=== PATIENT | female | born 1985 | race American Indian/Alaskan Native ===

== ENCOUNTER 2018-05-11 22:58 | Emergency (ER) | payer SELFPAY ==
[2018-05-12] MEDS ORDERED: NACL 0.9% 500 ML 500 ML IV ONE (00:38)
[2018-05-12] MEDS ORDERED: TYLENOL PO STA (00:38)
[2018-05-12 00:55] LABS: Basophils % (Auto) 0.3 % (0.0-1.8); Hematocrit 34.6 % (30.3-42.9); Hemoglobin 11.2 gm/dl (10.1-14.3); Lymphocytes # (Auto) 1.3 K/mm3 (1.2-5.4); Lymphocytes % (Auto) 7.8 % (13.4-35.0); Mean Corpuscular HGB Conc 32 % (30-34); Monocytes # (Auto) 0.8 K/mm3 (0.0-0.8); Monocytes % (Auto) 4.7 % (0.0-7.3); Platelet Count 254 K/mm3 (140-440); Red Blood Count 5.05 M/mm3 (3.65-5.03); Red Cell Distribution Width 19.4 % (13.2-15.2)
[2018-05-12 01:10] LABS: Alanine Aminotransferase 7 units/L (7-56); Albumin 3.9 g/dL (3.9-5); BUN/Creatinine Ratio 13; Blood Urea Nitrogen 10 mg/dL (7-17); Calcium 8.7 mg/dL (8.4-10.2); Hemolysis Index 1
[2018-05-12 01:29] LABS: Mean Corpuscular Hemoglobin 22 pg (28-32); Mean Corpuscular Volume 68 fl (79-97)
--- NOTE | 2018-05-12 01:36 | Emergency Department Report ---
ED General Adult HPI - General Chief complaint: Fever Stated complaint: FEVER,VOMITING,CHEST PAIN Time Seen by Provider: 05/12/18 01:25 Source: patient Mode of arrival: Ambulatory Limitations: No Limitations - History of Present Illness Initial comments: Patient is 32 years old female with no significant past medical history. Patient presented to the ER complaining of fever and generalized body pain. Patient is also noticing a redness in her right leg that is started this evening. She stated that she had history of cellulitis in this area before. Severity scale (0 -10): 0 - Related Data Allergies Allergy/AdvReac Type Severity Reaction Status Date / Time clindamycin Allergy Hives Verified 05/12/18 00:38 ED Review of Systems ROS: Stated complaint: FEVER,VOMITING,CHEST PAIN Other details as noted in HPI Comment: All other systems reviewed and negative Constitutional: chills, fever Respiratory: denies: cough, orthopnea, shortness of breath, SOB with exertion, SOB at rest, wheezing Cardiovascular: chest pain. denies: palpitations, dyspnea on exertion Gastrointestinal: abdominal pain, nausea, vomiting. denies: diarrhea, constipation, hematemesis, melena, hematochezia Genitourinary: abnormal menses. denies: urgency, discharge Neurological: denies: headache, weakness, numbness, paresthesias, confusion ED Past Medical Hx - Past Medical History Hx Asthma: Yes Additional medical history: Bronchitis, Morbid Obesity - Social History Smoking Status: Never Smoker Substance Use Type: None ED Physical Exam - General Limitations: No Limitations General appearance: alert, in no apparent distress - Head Head exam: Present: atraumatic, normocephalic, normal inspection - Eye Eye exam: Present: normal appearance, PERRL - ENT ENT exam: Present: normal exam, normal orophraynx, mucous membranes moist - Respiratory Respiratory exam: Present: normal lung sounds bilaterally - Cardiovascular Cardiovascular Exam: Present: regular rate, normal rhythm, normal heart sounds - GI/Abdominal GI/Abdominal exam: Present: soft, normal bowel sounds. Absent: distended, tenderness, guarding, rebound, rigid, diminished bowel sounds, organomegaly, mass, bruit, pulsatile mass - Extremities Exam Extremities exam: Present: full ROM, normal capillary refill. Absent: pedal edema, calf tenderness - Back Exam Back exam: Present: normal inspection, full ROM. Absent: CVA tenderness (R), CVA tenderness (L), muscle spasm, paraspinal tenderness, vertebral tenderness, rash noted - Neurological Exam Neurological exam: Present: alert, oriented X3, CN II-XII intact, normal gait, reflexes normal - Skin Skin exam: Present: warm, dry, intact, other (right leg with a 55 cm area of redness and erythema and slightly tender which is consistent with cellulitis) ED Course Vital Signs 05/11/18 05/12/18 05/12/18 23:20 00:30 01:20 Temperature 102.5 F H 102.5 F H 99.8 F H Pulse Rate 125 H 118 H 112 H Respiratory 18 18 24 Rate Blood Pressure 179/102 179/102 Blood Pressure 128/91 [Right] O2 Sat by Pulse 98 98 99 Oximetry 05/12/18 05/12/18 03:09 03:46 Temperature 98.8 F Pulse Rate 104 H Respiratory Rate Blood Pressure 129/51 Blood Pressure [Right] O2 Sat by Pulse 94 Oximetry ED Medical Decision Making - Lab Data Result diagrams: 05/12/18 00:43 05/12/18 00:43 - Radiology Data Radiology results: report reviewed Referring Physician: RUBY PAULSON Patient Name: MED MAI Date of : 1985 Sex: Female Report Date: 2018-05-12 Report Status: [place] [address] Cat Scan Report Signed Patient: MED MAI MR#: [id number] : 1985 Acct:[id number] Age/Sex: 32 / F ADM Date: 05/11/18 Loc: ED Attending Dr: Ordering Physician: RUBY PAULSON Date of Service: 05/12/18 Procedure(s): CT abdomen pelvis w con Accession Number(s): [id number] cc: RUBY PAULSON FINAL REPORT EXAM: CT ABDOMEN PELVIS W CON HISTORY: abdominal pain TECHNIQUE: Routine axial imaging was obtained of the abdomen and pelvis following the intravenous injection of 100 cc of Omnipaque 350. Delayed imaging was obtained through the kidneys ureters and bladder. Sagittal and coronal reconstructions were reviewed. FINDINGS: The lung bases are clear. Pleural fluid is not seen. The liver, gallbladder, biliary tree, pancreas, spleen, and adrenal glands appear normal. The kidneys enhance normally. The abdominal aorta is normal in caliber. The vasculatures enhance normally. The bowel loops are normal in caliber and course. There is no evidence of free fluid or adenopathy. The appendix appears normal. In the pelvis the uterus and bladder appear normal. There are no adnexal masses. The skeletal structures appear well maintained. IMPRESSION: No acute process in the abdomen and pelvis. Transcribed By: RB Dictated By: ASHLEIGH HERZOG MD Electronically Authenticated By: ASHLEIGH HERZOG MD Signed Date/Time: 05/12/18346 DD/ 6 TD/TT: 05/12/18346 Critical care attestation.: If time is entered above; I have spent that time in minutes in the direct care of this critically ill patient, excluding procedure time. ED Disposition Clinical Impression: Abdominal pain, Fever, Cellulitis of leg, right Disposition: DC-01 TO HOME OR SELFCARE Is pt being admited?: No Condition: Stable Instructions: Abdominal Pain (ED), Cellulitis (ED)
[2018-05-12 01:40] LABS: INR 1.1 (0.87-1.13)
--- NOTE | 2018-05-12 01:56 | XRay Report ---
FINAL REPORT EXAM: XR CHEST 1V AP HISTORY: possible Sepsis TECHNIQUE: A portable upright view the chest was submitted. FINDINGS: The heart size and vascularity appear normal. The lungs are clear. Pleural fluid is not seen. The skeletal structures are well-maintained. IMPRESSION: No acute cardiopulmonary process.
[2018-05-12] MEDS ORDERED: ZOSYN/NS 4.5GM/100ML 4.5 GM/100 ML VIAL IV ONE (02:29)
[2018-05-12 02:30] LABS: Bilirubin,Urine NEG (Negative); Blood,Urine NEG (Negative); Color,Urine Yellow (Yellow); Protein,Urine <15 mg/dL mg/dL (Negative); Urobilinogen,Urine < 2.0 mg/dL (<2.0)
[2018-05-12 02:50] LABS: HCG Qualitative,Urine Negative (Negative)
[2018-05-12] MEDS ORDERED: ZOFRAN IV ONE (03:33)
[2018-05-12] MEDS ORDERED: MORPHINE IV ONE (03:33)
[2018-05-12 03:47] VITALS: BP 129/51
--- NOTE | 2018-05-12 03:49 | Cat Scan Report ---
FINAL REPORT EXAM: CT ABDOMEN PELVIS W CON HISTORY: abdominal pain TECHNIQUE: Routine axial imaging was obtained of the abdomen and pelvis following the intravenous injection of 100 cc of Omnipaque 350. Delayed imaging was obtained through the kidneys ureters and bladder. Sagittal and coronal reconstructions were reviewed. FINDINGS: The lung bases are clear. Pleural fluid is not seen. The liver, gallbladder, biliary tree, pancreas, spleen, and adrenal glands appear normal. The kidneys enhance normally. The abdominal aorta is normal in caliber. The vasculatures enhance normally. The bowel loops are normal in caliber and course. There is no evidence of free fluid or adenopathy. The appendix appears normal. In the pelvis the uterus and bladder appear normal. There are no adnexal masses. The skeletal structures appear well maintained. IMPRESSION: No acute process in the abdomen and pelvis.
== END 2018-05-12 05:20 | disposition home or self-care (01) ==
LOC: ED 22:58
DX: L03.115 Cellulitis of right lower limb (principal); R10.9 Unspecified abdominal pain; J45.909 Unspecified asthma, uncomplicated; E66.01 Morbid (severe) obesity due to excess calories; Z68.42 Body mass index [BMI] 45.0-49.9, adult; Z88.1 Allergy status to other antibiotic agents
CPT/HCPCS: 36415; 71045; 74177; 80053; 81001; 81025; 82140; 82805; 84703; 85025; 85610; 87040; 87086; 93005; 93010; 96361; 96365; 96375; 99285; J2270; J2405; J2543; J7040; Q9967

== ENCOUNTER 2018-09-02 00:41 | Emergency (ER) | payer SELFPAY ==
[2018-09-02 00:52] VITALS: BP 154/102
--- NOTE | 2018-09-02 02:05 | Emergency Department Report ---
- General Chief complaint: Fever Stated complaint: FEVER WITH CHILLS RT LEG PAIN Time Seen by Provider: 09/02/18 01:01 Source: patient Mode of arrival: Ambulatory Limitations: No Limitations - History of Present Illness Initial comments: This is 33-year-old female here report fever, chills, redness to right leg with swelling and warmth to touch. She reports that she does have any drainage from site. She says she has cellulitis to area where she had insect bite or spider bite intended 2011 and she has had repeat cellulitis about 4-5 times since then. Patient was here on 2017 and was treated for similar complaints with Bactrim. She said it got better but it just comes and goes. She reports she is having body aches which she was having before and similar to body ache with cellulitis breakout at 7 out of 10 and also right leg pain at cellulitic fight at 8 out of 10 pain's achy worsen movement better with rest. She denies any shortness of breath, cough, chest pain or congestion. Denies any history of blood clots and says she has had Doppler ultrasound in the past but she did not have one last time she was here. Patient has a history of asthma and bro nchitis. She says she comes to the hospital to get treated. Tetanus vaccine is up-to-date. complaint: rash Onset/Timin -: days(s) Tetanus Up to Date: yes Location: generalized (generalized body ache), RLE (right distal leg) Severity: severe Severity scale (0 -10): 8 Quality: aching Consistency: constant Improves with: none Worsens with: palpation, movement Context: other (patient recurrent cellulitis to the area since 2011 where she had a spider bite.) Associated symptoms: fever, chills, athralgias, myalgias Treatments Prior to Arrival: NSAID - Related Data Previous Rx's Medication Instructions Recorded Last Taken Type Sulfamethoxazole/Trimethoprim 1 each PO BID #20 tablet 05/12/18 Unknown Rx [Bactrim DS TAB] Acetaminophen/Codeine [Tylenol 1 tab PO Q6H PRN #14 tab 09/02/18 Unknown Rx /Codeine # 3 tab] Ibuprofen [Motrin] 800 mg PO Q8HR PRN #12 tablet 09/02/18 Unknown Rx Sulfamethoxazole/Trimethoprim 1 each PO BID 10 Days #20 tablet 09/02/18 Unknown Rx [Bactrim DS TAB] cephALEXin [Keflex] 500 mg PO Q8HR 10 Days #30 cap 09/02/18 Unknown Rx Allergies Allergy/AdvReac Type Severity Reaction Status Date / Time clindamycin Allergy Hives Verified 05/12/18 00:38 Abscess Boil HPI - HPI Chief Complaint: Fever Stated Complaint: FEVER WITH CHILLS RT LEG PAIN Time Seen by Provider: 09/02/18 01:01 Home Medications: Previous Rx's Medication Instructions Recorded Last Taken Type Sulfamethoxazole/Trimethoprim 1 each PO BID #20 tablet 05/12/18 Unknown Rx [Bactrim DS TAB] Acetaminophen/Codeine [Tylenol 1 tab PO Q6H PRN #14 tab 09/02/18 Unknown Rx /Codeine # 3 tab] Ibuprofen [Motrin] 800 mg PO Q8HR PRN #12 tablet 09/02/18 Unknown Rx Sulfamethoxazole/Trimethoprim 1 each PO BID 10 Days #20 tablet 09/02/18 Unknown Rx [Bactrim DS TAB] cephALEXin [Keflex] 500 mg PO Q8HR 10 Days #30 cap 09/02/18 Unknown Rx Allergies/Adverse Reactions: Allergies Allergy/AdvReac Type Severity Reaction Status Date / Time clindamycin Allergy Hives Verified 05/12/18 00:38 ED Review of Systems ROS: Stated complaint: FEVER WITH CHILLS RT LEG PAIN Other details as noted in HPI Constitutional: chills, fever Respiratory: denies: cough, shortness of breath, SOB with exertion, SOB at rest, stridor, wheezing Cardiovascular: denies: chest pain, palpitations, dyspnea on exertion, edema, syncope Gastrointestinal: denies: abdominal pain, nausea, vomiting, diarrhea, constipation Genitourinary: denies: dysuria, discharge Musculoskeletal: arthralgia, myalgia. denies: back pain, joint swelling Skin: rash, change in color Neurological: denies: headache, numbness, paresthesias, abnormal gait, vertigo ED Past Medical Hx - Past Medical History Previous Medical History?: Yes Hx Asthma: Yes Additional medical history: Bronchitis, Morbid Obesity. Current cellulitis to right lower extremity secondary to insect bite in 2012 - Surgical History Past Surgical History?: No - Family History Family history: hypertension - Social History Smoking Status: Never Smoker Substance Use Type: Alcohol - Medications Home Medications: Home Medications Medication Instructions Recorded Confirmed Last Taken Type Sulfamethoxazole/Trimethoprim 1 each PO BID #20 tablet 05/12/18 Unknown Rx [Bactrim DS TAB] Acetaminophen/Codeine [Tylenol 1 tab PO Q6H PRN #14 tab 09/02/18 Unknown Rx /Codeine # 3 tab] Ibuprofen [Motrin] 800 mg PO Q8HR PRN #12 tablet 09/02/18 Unknown Rx Sulfamethoxazole/Trimethoprim 1 each PO BID 10 Days #20 tablet 09/02/18 Unknown Rx [Bactrim DS TAB] cephALEXin [Keflex] 500 mg PO Q8HR 10 Days #30 cap 09/02/18 Unknown Rx ED Physical Exam - General Limitations: No Limitations General appearance: alert, in no apparent distress - Head Head exam: Present: atraumatic, normocephalic, normal inspection - Eye Eye exam: Present: normal appearance, PERRL, EOMI Pupils: Present: normal accommodation - ENT ENT exam: Present: normal exam, normal orophraynx, mucous membranes moist - Neck Neck exam: Present: full ROM, other (no C-spine tenderness). Absent: tenderness, lymphadenopathy - Respiratory Respiratory exam: Present: normal lung sounds bilaterally. Absent: respiratory distress, chest wall tenderness - Cardiovascular Cardiovascular Exam: Present: normal rhythm, tachycardia, normal heart sounds - GI/Abdominal GI/Abdominal exam: Present: soft, normal bowel sounds. Absent: distended, tenderness, guarding, rebound, rigid, organomegaly, mass, bruit, pulsatile mass - Extremities Exam Extremities exam: Present: normal inspection, full ROM, tenderness (right distal leg anteriorly), normal capillary refill, other (No cce. + 2 pulses in all extremities, no neurovascular compromise except for redness and swelling to right distal leg anteriorly. No drainage. Tender to palpate.). Absent: pedal edema, joint swelling, calf tenderness - Expanded Lower Extremity Exam Right Hip exam: Present: normal inspection, full ROM, pelvic stability. Absent: tenderness, swelling, abrasion, laceration, ecchymosis, deformity, crepidus, dislocation, erythema, external rotation, internal rotation, shortening Upper Leg exam: Present: normal inspection, full ROM. Absent: tenderness, swelling, abrasion, laceration, ecchymosis, deformity, crepidus, dislocation Knee exam: Present: normal inspection, full ROM, full knee extension. Absent: tenderness, swelling, abrasion, laceration, ecchymosis, deformity, crepidus, di slocation, erythema, effusion, pain w/ pronation/supination, posterior draw sign, pain/laxity with valgus, pain/laxity with varus Lower Leg exam: Present: full ROM, tenderness (tenderness palpated to right anterior distal leg), swelling (mild swelling to right anterior distal leg), erythema. Absent: normal inspection, abrasion, laceration, ecchymosis, deformity, crepidus, dislocation, palpable cord, Jay's sign Ankle exam: Present: normal inspection, full ROM. Absent: tenderness, swelling, abrasion, laceration, ecchymosis, deformity, crepidus, dislocation, erythema Foot/Toe exam: Present: normal inspection, full ROM. Absent: tenderness, swelling, abrasion, laceration, ecchymosis, deformity, crepidus, dislocation, erythema, amputation, puncture wound, foreign body, calcaneal tenderness, tenderness at base of 5th metatarsal, nail avulsion, subungual hematoma Neuro vascular tendon exam: Present: no vascular compromise. Absent: pulse deficit, abnormal cap refill, motor deficit, sensory deficit, tendon deficit, extremity cold to touch, pallor, abnormal 2-point discrimination, decreased fine/light touch, foot drop, peroneal nerve deficit, significant pain with passive ROM of distal joint Gait: Positive: observed and limited by pain - Back Exam Back exam: Present: normal inspection, full ROM, other (ambulates today d ifficulty). Absent: tenderness, rash noted - Neurological Exam Neurological exam: Present: alert, oriented X3, normal gait, reflexes normal. Absent: motor sensory deficit - Psychiatric Psychiatric exam: Present: normal affect, normal mood - Skin Skin exam: Present: warm, dry, intact, rash, erythema. Absent: cyanosis, urticaria, vesicles, petechiae, pallor, abrasion, ecchymosis - Expanded Skin Exam Expanded Type of lesion: Present: rash Distribution of rash: RLE (right distal anterior leg) Description of rash: Present: size (16 cm x 16.5 cm), tenderness, erythematous ( right distal anterior leg), swelling. Absent: vesicular, blisters, confluent, bullous, petechial, purpuic, urticarial, crusting, discharge, fluctuant, indurated ED Course Vital Signs 09/02/18 09/02/18 09/02/18 00:46 00:48 05:02 Temperature 99.5 F 99.5 F Pulse Rate 105 H 89 92 H Respiratory 18 18 17 Rate Blood Pressure 154/102 154/102 O2 Sat by Pulse 98 98 99 Oximetry - Reevaluation(s) Reevaluation #1: 09/02/18 04:27 Patient given Motrin in the emergency room for pain relief of pain. Venous Doppler ultrasound with negative findings for DVT or SVT. She will receive Bactrim and Keflex by mouth before discharge. ED Medical Decision Making - Lab Data Result diagrams: 09/02/18 02:27 09/02/18 02:27 Lab Results 09/02/18 09/02/18 Range/Units 02:27 02:27 WBC 11.5 H (4.5-11.0) K/mm3 RBC 4.60 (3.65-5.03) M/mm3 Hgb 10.4 (10.1-14.3) gm/dl Hct 33.2 (30.3-42.9) % MCV 72 L (79-97) fl MCH 23 L (28-32) pg MCHC 31 (30-34) % RDW 18.4 H (13.2-15.2) % Plt Count 190 (140-440) K/mm3 Lymph % (Auto) 16.9 (13.4-35.0) % Bay % (Auto) 5.3 (0.0-7.3) % Eos % (Auto) 0.8 (0.0-4.3) % Baso % (Auto) 0.3 (0.0-1.8) % Lymph # 1.9 (1.2-5.4) K/mm3 Bay # 0.6 (0.0-0.8) K/mm3 Eos # 0.1 (0.0-0.4) K/mm3 Baso # 0.0 (0.0-0.1) K/mm3 Seg Neutrophils % 76.7 H (40.0-70.0) % Seg Neutrophils # 8.8 H (1.8-7.7) K/mm3 Sodium 138 (137-145) mmol/L Potassium 3.8 (3.6-5.0) mmol/L Chloride 101.8 (98-107) mmol/L Carbon Dioxide 27 (22-30) mmol/L Anion Gap 13 mmol/L BUN 11 (7-17) mg/dL Creatinine 0.8 (0.7-1.2) mg/dL Estimated GFR > 60 ml/min BUN/Creatinine Ratio 14 % Glucose 104 H (65-100) mg/dL Calcium 8.5 (8.4-10.2) mg/dL - Radiology Data Radiology results: report reviewed Venous duplex lower extremity, right ultrasound dictated by radiologist report reviewed by myself. Please see details below. Findings [facility] [address] [id number] Vascular Lab Report Signed Patient: MED MAI MR#: [id number] : 1985 Acct:[id number] Age/Sex: 33 / F ADM Date: 09/02/18 Loc: ED Attending Dr: Ordering Physician: EVE RODRIGUES Date of Service: 09/02/18 Procedure(s): VL venous duplex LE RT Accession Number(s): [id number] cc: EVE RODRIGUES FINAL REPORT PROCEDURE: VL VENOUS DUPLEX LE RT TECHNIQUE: Duplex Doppler ultrasound of the RIGHT common and superficial femoral, popliteal, posterior tibial, and proximal deep femoral and greater saphenous veins was attempted. Talley scale imaging with and without compression, spectral waveform analysis with and without augmentation, and color flow Doppler were employed. CPT 27268-TG HISTORY: right lower extremity swelling with pain/ redness COMPARISON: No prior studies are available for comparison. FINDINGS: Deep Venous Thrombus: None . Superficial Venous Thrombus: None . Venous valvular incompetence: None . Soft tissue abnormality: None . Other: None . IMPRESSION: No evidence of deep venous thrombosis Transcribed By: CO Dictated By: WILIAM LOPEZ MD Electronically Authenticated By: WILIAM LOPEZ MD Signed Date/Time: 09/02/18300 DD/ 2 TD/TT: 09/02/18302 - Medical Decision Making This is a 33-year-old female here report that she has cellulitis to her right leg and this is been going on since 2011 that she has been bitten by insects S provider. She reports pain and body aches which she said is the usual symptoms that she has. She is also having fever. She was here in May 2018 was treated with Bactrim DS. Patient had CBC done white count is mildly elevated, BMP stable. Patient received Motrin 800 mg emergency room for pain which was her pain. Venous Doppler ultrasound right lower extremity shows no SVT or DVT and no soft tissue swelling seen. Patient with cellulitis to the distal right lower leg she was started on Bactrim DS one tablet and Keflex added 500 mg since she got Bactrim within the last 3 months. I told her that she needs to follow up with her primary care doctor in 2-3 days or if area of redness that is marked increase, increased swelling, increased fever or pain to return to the emergency room ISAAC. She voiced understanding. Patient instructed on her ultrasound results and laboratory results. Discharged home in stable condition, pain controlled. Given prescription for Motrin, Tylenol 3, Bactrim DS and Kef ana. - Differential Diagnosis DVT versus cellulitis Critical care attestation.: If time is entered above; I have spent that time in minutes in the direct care of this critically ill patient, excluding procedure time. ED Disposition Clinical Impression: Cellulitis of right leg, Leg pain, right Disposition: DC-01 TO HOME OR SELFCARE Is pt being admited?: No Does the pt Need Aspirin: No Condition: Stable Instructions: Cellulitis (ED), Arthralgia (ED) Additional Instructions: Please take antibiotic as prescribed. Follow up with your primary care doctor in 2 days and effusion and have a primary care doctor follow-up at [facility] Take medication as prescribed Increase fluid intake. Take Motrin for mild to moderate pain and Tylenol No. 3 for severe pain but please do not drive or operate heavy machinery taking Tylenol No. 3 as this medication causes drowsiness. Take Motrin with food and take this medication every 6 hours 2 days and then as needed. This will keep her fever down. Take Bactrim and Keflex antibiotic for cellulitis to her right leg Keep affected area clean and dry If redness increases outside of marked area, increase in swelling, drainage, weakness, fever that is not decreasing over 2 days or if fever increase, increase in pain and swelling, please return to the emergency room is AP Prescriptions: Acetaminophen/Codeine [Tylenol /Codeine # 3 tab] 1 tab PO Q6H PRN #14 tab PRN Reason: severe pain cephALEXin [Keflex] 500 mg PO Q8HR 10 Days #30 cap Ibuprofen [Motrin] 800 mg PO Q8HR PRN #12 tablet PRN Reason: fever and or mild to moderate Sulfamethoxazole/Trimethoprim [Bactrim DS TAB] 1 each PO BID 10 Days #20 tablet Referrals: VALENTIN ALEX MD [Primary Care Provider] - 09/04/18 [facility] [Outside] - 09/04/18 Forms: Work/School Release Form(ED)
[2018-09-02] MEDS ORDERED: IBUPROFEN PO ONE (02:17)
[2018-09-02 02:52] LABS: Basophils % (Auto) 0.3 % (0.0-1.8); Eosinophils # (Auto) 0.1 K/mm3 (0.0-0.4); Eosinophils % (Auto) 0.8 % (0.0-4.3); Hematocrit 33.2 % (30.3-42.9); Hemoglobin 10.4 gm/dl (10.1-14.3); Lymphocytes # (Auto) 1.9 K/mm3 (1.2-5.4); Lymphocytes % (Auto) 16.9 % (13.4-35.0); Mean Corpuscular HGB Conc 31 % (30-34); Mean Corpuscular Volume 72 fl (79-97); Monocytes # (Auto) 0.6 K/mm3 (0.0-0.8); Monocytes % (Auto) 5.3 % (0.0-7.3); Platelet Count 190 K/mm3 (140-440); Red Cell Distribution Width 18.4 % (13.2-15.2)
--- NOTE | 2018-09-02 03:01 | Vascular Lab Report ---
FINAL REPORT PROCEDURE: VL VENOUS DUPLEX LE RT TECHNIQUE: Duplex Doppler ultrasound of the RIGHT common and superficial femoral, popliteal, posteri or tibial, and proximal deep femoral and greater saphenous veins was attempted. Talley scale imaging wi th and without compression, spectral waveform analysis with and without augmentation, and color flow Doppler were employed. CPT 21906-JM HISTORY: right lower extremity swelling with pain/ redness COMPARISON: No prior studies are available for comparison. FINDINGS: Deep Venous Thrombus: None . Superficial Venous Thrombus: None . Venous valvular incompetence: None . Soft tissue abnormality: None . Other: None . IMPRESSION: No evidence of deep venous thrombosis
[2018-09-02 03:03] LABS: BUN/Creatinine Ratio 14; Blood Urea Nitrogen 11 mg/dL (7-17); Calcium 8.5 mg/dL (8.4-10.2); Hemolysis Index 8
[2018-09-02] MEDS ORDERED: BACTRIM DS PO ONE (04:26)
[2018-09-02] MEDS ORDERED: KEFLEX PO ONE (04:26)
== END 2018-09-02 05:02 | disposition home or self-care (01) ==
LOC: ED 00:41
DX: L03.115 Cellulitis of right lower limb (principal); M79.604 Pain in right leg; M79.18 Myalgia, other site; J45.909 Unspecified asthma, uncomplicated; E66.01 Morbid (severe) obesity due to excess calories; Z88.1 Allergy status to other antibiotic agents
CPT/HCPCS: 36415; 80048; 85025